=== PATIENT | male | born 1975 | race Caucasian/White ===

== ENCOUNTER 2016-06-06 16:18 | Emergency (ER) | payer SELFPAY ==
[~2016-06-06] VITALS: Ht 172.7 cm; Wt 103.4 kg
[~2016-06-06 16:18] MED LIST: ALLEGRA180 MG PO; AMOXICILLIN500 M2 PO; AMOXICILLIN500 MG PO; ANAPROX DS550 MG PO; AUGMENTIN 875875 MG PO; BACTRIM DS 8001 TA1 PO; CLEOCIN HCL150 MG PO; CLEOCIN150 MG PO; CLINDAMYCIN HC300 MG PO; DICLOFENAC POTA50 MG PO; FLEXERIL5 MG PO; HYDROCODONE BIT1 T11 PO; MOTRIN800 MG PO; NKHM; NORCO 325 MG-51 TAB PO; NORFLEX100 MG PO; PHENERGAN25 M1 PO; PREDNICOT20 MG PO; PREDNISONE10 MG PO; TRAMADOL HCL50 MG PO; TRIMOX500 MG PO; VICODIN 5/500 505 MG PO; VICODIN 500 MG-1 TAB PO; ZITHROMAX Z PA250 MG PO; ZITHROMAX250 MG PO; ZOLOFT50 MG PO; ZYRTEC10 MG PO
[2016-06-06] MEDS ORDERED: ZOLOFT25 MG PO (16:23)
== END 2016-06-06 17:53 | disposition home or self-care (01) ==
LOC: ED 16:18
DX: T78.40XA Allergy, unspecified, initial encounter (principal); X58.XXXA Exposure to other specified factors, initial encounter; Z79.899 Other long term (current) drug therapy

== ENCOUNTER 2016-09-23 12:28 | Emergency (ER) | payer SELFPAY ==
[~2016-09-23] VITALS: Ht 167.6 cm; Wt 99.8 kg
[~2016-09-23 12:28] MED LIST changes: +ZOLOFT25 MG PO
[2016-09-23] MEDS ORDERED: PREDNISONE10 MG PO (12:46)
== END 2016-09-23 14:34 | disposition home or self-care (01) ==
LOC: ED 12:28
DX: L30.9 Dermatitis, unspecified (principal); R03.0 Elevated blood-pressure reading, without diagnosis of hypertension; F32.9 Major depressive disorder, single episode, unspecified; Z79.899 Other long term (current) drug therapy

== ENCOUNTER 2017-03-12 22:14 | Emergency (ER) | payer SELFPAY ==
[~2017-03-12] VITALS: Ht 170.1 cm; Wt 99.8 kg
[2017-03-12] MEDS ORDERED: PREDNISONE50 MG PO (22:47)
== END 2017-03-12 23:30 | disposition home or self-care (01) ==
LOC: ED 22:14
DX: J06.9 Acute upper respiratory infection, unspecified (principal)

== ENCOUNTER 2017-03-26 21:57 | Inpatient (IN) | payer SELFPAY ==
[~2017-03-26] VITALS: Ht 170.1 cm; Wt 100.9 kg
--- NOTE | ~2017-03-26 | ST ---
[place], [place] EXERCISE STRESS TEST REPORT NAME: [facility]AVANA BAUTISTA III [facility]: [id number] UNIT #: [id number] ROOM: 526 DOCTOR: SERGIO LIN MD BIRTHDATE: [birth year] DOS: 03/27/2017 REFERRING PHYSICIAN: Dr. Gutierrez. INDICATION: Central chest pain. The patient underwent a standard Jas protocol exercise nuclear stress test. The patient's baseline EKG showed sinus bradycardia at 51 beats per minute with early repolarization. Blood pressure was 108/72. The patient exercised for 10 minutes 45 seconds, reaching a peak heart rate of 163, which represents 92% of maximum predicted. The patient achieved a peak metabolic level of 12.5. The patient had no ischemic changes. The patient had inspirational chest pain, reproducible with deep inspiration. The patient had no arrhythmias. SUMMARY OF FINDINGS: 1. No ischemic changes. 2. Atypical chest pain. 3. Brown Treadmill score of 12.5 portending a low-risk prognosis. 4. Please see separate dictation for perfusion scan results. SERGIO LIN MD CM:STRESS:EXERCISE STRESS TEST REPORT [id number] SERGIO LIN MD
[~2017-03-26 21:57] MED LIST changes: +PREDNISONE50 MG PO
[2017-03-26 22:11] VITALS: BP 136/86
[2017-03-26 22:15] LABS: BASO % 0.4 % (0.0-1.0); EOS # 0.2 10*3/uL (0.0-0.4); HEMATOCRIT 41.8 % (42.0-52.0); HEMOGLOBIN 14.2 g/dl (14.0-18.0); LYMPH # 2.4 10*3/uL (1.3-4.4); LYMPH % 22.2 % (27.0-41.0); MEAN CELL VOLUME 91.9 fl (80.0-94.0); MEAN CORPUSCULAR HGB 31.2 pg (27.0-31.0); MEAN PLATELET VOLUME 9.1 fl (9.6-12.3); MONO % 9.3 % (3.0-9.0); NEUT # 6.9 10*3/uL (2.3-7.9); NEUT % 65.3 % (47.0-73.0); PLATELET COUNT AUTOMATED 255 10*3/uL (130-400); RED BLOOD COUNT 4.55 10*6/uL (4.50-5.90); RED CELL DISTRI WIDTH 12.2 % (0-14.5); WHITE BLOOD COUNT 10.6 10*3/uL (4.8-10.8)
[2017-03-26 22:24] LABS: ACT PARTIAL THROMBO TIME 27.1 SECONDS (20.8-31.5)
--- NOTE | 2017-03-26 22:24 | NUR ---
XRAY AT BEDSIDE
[2017-03-26 22:32] LABS: ALKALINE PHOSPHATASE 95 U/L (45-117); BUN 17 mg/dl (7-24); CHLORIDE 103 mmol/L (98-107); CREATININE 1.16 mg/dL (0.70-1.30); POTASSIUM 3.8 mmol/L (3.5-5.1); SGOT/AST 22 IU/L (3-35); SGPT/ALT 51 U/L (12-78); SODIUM 139 mmol/L (136-145); TOTAL PROTEIN 7.7 gm/dL (6.4-8.2)
[2017-03-26 22:33] LABS: TROPONIN I < 0.015 ng/ml (<0.045)
[2017-03-26 22:38] VITALS: BP 123/82
--- NOTE | 2017-03-26 22:39 | NUR ---
PATIENT REPORTS DECREASED CHEST PAIN. 2 OR 3 ON SCALE FROM 1-10. SITTIGN UP IN BED AT THIS TIME.
--- NOTE | 2017-03-26 22:55 | NUR ---
PATIENT REPORTS CHEST PAIN IS A 1 AND HE FEELS MUCH BETTER. COUGH NOTED.
[2017-03-26 23:06] VITALS: BP 111/77
[2017-03-26 23:54] VITALS: BP 101/66
--- NOTE | 2017-03-27 00:25 | NUR ---
transported patient to ct. condition stable.
[2017-03-27 00:49] VITALS: BP 113/80
--- NOTE | 2017-03-27 01:24 | NUR ---
PATIENT REPORTS CHEST PAIN IS 2 OUT OF 10.
--- NOTE | 2017-03-27 02:10 | NUR ---
RATES CHEST PAIN A 3 OF 10 AT THIS TIME.
--- NOTE | 2017-03-27 02:16 | NUR ---
CALLED THE FLOOR FOR REPORT, WILL CALL BACK.
[2017-03-27 02:45] VITALS: BP 134/69
--- NOTE | 2017-03-27 02:45 | NUR ---
A 41, admitted to 5E, under the services of ANTONINA Farooq DO with a diagnosis of CHEST PAIN. Chief complaint is CHEST PAIN. Patient arrived via bed from ER. Monitor applied. Initial assessment completed. Vital signs taken and recorded. ANTONINA FAROOQ DO notified of admission to the unit. Orders received. See assessment for past medical history, medications and allergies. Patient and/or family oriented to unit. visitation policy reviewed. Clothing/patient valuable form completed. LATOSHA MICHAEL
--- NOTE | 2017-03-27 02:56 | NUR ---
MED REC UP TO DATE PER PATIENT
[2017-03-27 04:22] LABS: BASO % 0.4 % (0.0-1.0); EOS # 0.2 10*3/uL (0.0-0.4); EOS % 2.1 % (1.0-4.0); HEMATOCRIT 39.6 % (42.0-52.0); HEMOGLOBIN 13.4 g/dl (14.0-18.0); LYMPH # 2.4 10*3/uL (1.3-4.4); LYMPH % 22.1 % (27.0-41.0); MEAN CELL VOLUME 92.5 fl (80.0-94.0); MEAN CORPUSCULAR HGB 31.3 pg (27.0-31.0); MEAN CORPUSCULAR HGB CONC 33.8 g/dl (33.0-37.0); MEAN PLATELET VOLUME 9.2 fl (9.6-12.3); MONO # 0.9 10*3/uL (0.1-1.0); MONO % 8.5 % (3.0-9.0); NEUT # 7.1 10*3/uL (2.3-7.9); NEUT % 66.1 % (47.0-73.0); PLATELET COUNT AUTOMATED 230 10*3/uL (130-400); RED BLOOD COUNT 4.28 10*6/uL (4.50-5.90); RED CELL DISTRI WIDTH 12.4 % (0-14.5); WHITE BLOOD COUNT 10.7 10*3/uL (4.8-10.8)
[2017-03-27 04:34] LABS: BUN 17 mg/dl (7-24); CHLORIDE 105 mmol/L (98-107); CREATININE 1.09 mg/dL (0.70-1.30); SODIUM 141 mmol/L (136-145)
[2017-03-27 04:40] LABS: CHOLESTEROL 221 mg/dL (<200); HDL CHOLESTEROL 42 mg/dl (40-60); LDL CHOLESTEROL 138 mg/dL (9-159); PHOSPHOROUS 3.5 mg/dL (2.5-4.9); TRIGLYCERIDES 205 mg/dl (<150); VLDL CHOLESTEROL 41 mg/dL (6-40)
--- NOTE | 2017-03-27 06:00 | NUR ---
PATIENT OFF FLOOR FOR CT AT THIS TIME.
--- NOTE | 2017-03-27 06:24 | NUR ---
PHYSICIAN WAS NOTIFIED OF DR. LIN CONSULT. RESPONSE OF NOTIFICATION WAS OKAY WE'LL SEE HIM LATER TODAY. ROSHNI RINCON
[2017-03-27 06:35] LABS: VITAMIN D, 25-HYDROXY 30.6 ng/mL (30-100)
[2017-03-27 08:00] VITALS: BP 123/76
[2017-03-27 12:00] VITALS: BP 120/80
--- NOTE | 2017-03-27 12:00 | NUR ---
INFORMED CONSENT OBTAINED FOR EXERCISE CARDIOLITE STRESS TEST WITH DR. LIN. RESTING EKG SINUS GISSEL WITH A SUPINE HR OF 51 WITH A BP OF 108/72 AND HR OF 63 WITH BP OF 110/76 IN STANDING POSITION. HAS EARLY REPOLARIZATION. PT COMPLETED 10:45 OF A KENNY PROTOCOL WITH COMPLETION OF STAGE IV AT 4.2 MPH AND 16% GRADE. REACHED A PEAK HR OF 163 WHICH IS 92% OF PREDICTED MAX WITH A PEAK BP OF 212/[address]. [address] ELEVATION IN LEADS V2-V3. DID HAVE CHEST DISCOMFORT WITH DEEP INSPIRATION. HAS A HIGH EXERCISE TOLERANCE. LAST RECOVERY HR OF 97 WITH BP OF 172/98. HAD HYPERTENSIVE RESPONSE TO EXERCISE. AWAITING SCANNING IN STABLE CONDITION.
[2017-03-27] MEDS ORDERED: ZANTAC 150150 MG PO (14:42)
[2017-03-27 16:00] VITALS: BP 118/67
--- NOTE | 2017-03-27 16:46 | NUR ---
PT. INSTRUCTED ON I/S AND THE PURPOSE. PT. INSTRUCTED TO TAKE HOME UPON DISCHARGE. 1500 TO 2000 VOLUME ACHIEVED.
--- NOTE | 2017-03-27 17:48 | NUR ---
Discharge instructions reviewed with patient/family. Patient receptive and verbalizes understanding. Follow-up care arranged. Written instructions given to patient/family. AFR[place] FONG
== END 2017-03-27 17:48 | disposition home or self-care (01) | DRG 313 ==
LOC: ED 21:57 → EDHOLD 03-27 01:56 → 5E 03-27 02:07
PROVIDERS: Emergency Medicine Emergency Medical Services; Internal Medicine; ADMIT Internal Medicine
PROC: 4A02XM4 Measurement of Cardiac Total Activity, External Approach (ICD-10-PCS; principal; 2017-03-27)
DX: R07.89 Other chest pain (principal); J18.1 Lobar pneumonia, unspecified organism; F33.9 Major depressive disorder, recurrent, unspecified; E83.41 Hypermagnesemia; K52.9 Noninfective gastroenteritis and colitis, unspecified; J02.9 Acute pharyngitis, unspecified; R79.89 Other specified abnormal findings of blood chemistry; E66.9 Obesity, unspecified; Z68.30 Body mass index [BMI] 30.0-30.9, adult; Z81.8 Family history of other mental and behavioral disorders; Z87.442 Personal history of urinary calculi; Z82.49 Family history of ischemic heart disease and other diseases of the circulatory system; Z87.891 Personal history of nicotine dependence

== ENCOUNTER 2017-08-06 21:30 | Emergency (ER) | payer SELFPAY ==
[~2017-08-06] VITALS: Ht 167.6 cm; Wt 108.9 kg
[~2017-08-06 21:30] MED LIST changes: +ZANTAC 150150 MG PO
[2017-08-06 21:51] LABS: BASO % 0.5 % (0.0-1.0); EOS # 0.3 10*3/uL (0.0-0.4); EOS % 3.1 % (1.0-4.0); LYMPH # 2.5 10*3/uL (1.3-4.4); LYMPH % 31.9 % (27.0-41.0); MEAN CORPUSCULAR HGB 31.7 pg (27.0-31.0); MEAN CORPUSCULAR HGB CONC 34.1 g/dl (33.0-37.0); MEAN PLATELET VOLUME 9.3 fl (9.6-12.3); MONO # 0.9 10*3/uL (0.1-1.0); MONO % 11.5 % (3.0-9.0); NEUT # 4.2 10*3/uL (2.3-7.9); NEUT % 52.4 % (47.0-73.0); PLATELET COUNT AUTOMATED 232 10*3/uL (130-400); RED BLOOD COUNT 4.41 10*6/uL (4.50-5.90); RED CELL DISTRI WIDTH 11.8 % (0-14.5); WHITE BLOOD COUNT 7.9 10*3/uL (4.8-10.8)
[2017-08-06 22:10] LABS: BILIRUBIN NEGATIVE (NEGATIVE); BLOOD NEGATIVE (NEGATIVE); CLARITY CLEAR (CLEAR); COLOR YELLOW (YELLOW); GLUCOSE NEGATIVE (NEGATIVE); KETONE NEGATIVE (NEGATIVE); LEUKO ESTERASE NEGATIVE (NEGATIVE); NITRITE NEGATIVE (NEGATIVE); PH 5.5 (5.0-9.0); SPECIFIC GRAVITY 1.025 (1.005-1.030); UROBILINOGEN 0.2 E.U./dl (0.2-1.0)
[2017-08-06 22:10] LABS: ALBUMIN 3.7 gm/dl (3.1-4.5); ALKALINE PHOSPHATASE 85 U/L (45-117); BUN 18 mg/dl (7-24); CHLORIDE 103 mmol/L (98-107); CREATININE 1.17 mg/dL (0.70-1.30); LIPASE 114 U/L (73-393); POTASSIUM 4.2 mmol/L (3.5-5.1); SGOT/AST 33 IU/L (3-35); SGPT/ALT 70 U/L (12-78); SODIUM 139 mmol/L (136-145); TOTAL PROTEIN 7.2 gm/dL (6.4-8.2)
[2017-08-06 22:14] LABS: BETA-HCG, QUANT < 1.0 mIU/mL (<1)
[2017-08-06 22:16] LABS: BACTERIA TRACE
[2017-08-06 22:17] LABS: MUCOUS TRACE; RBC 0-2 rbc/hpf (0-2); WBC 0-2 wbc/hpf (0-5)
[2017-08-06] MEDS ORDERED: Percocet 325 MG1 TAB PO (23:14)
[2017-08-06] MEDS ORDERED: ZOFRAN ODT4 MG SL (23:14)
== END 2017-08-06 23:33 | disposition home or self-care (01) ==
LOC: ED 21:30
PROVIDERS: Emergency Medicine Emergency Medical Services
DX: N23 Unspecified renal colic (principal); E78.5 Hyperlipidemia, unspecified; E66.9 Obesity, unspecified; Z87.442 Personal history of urinary calculi; Z87.891 Personal history of nicotine dependence; Z68.34 Body mass index [BMI] 34.0-34.9, adult; Z98.890 Other specified postprocedural states; Z79.899 Other long term (current) drug therapy

== ENCOUNTER 2018-05-18 | Emergency (ER) | payer SELFPAY ==
[~2018-05-18] MED LIST changes: +CLARITIN10 MG PO; +FLONASE ALLERG9.9 ML NAS; +OMNICEF300 MG PO; +Percocet 325 MG1 TAB PO; +ZOFRAN ODT4 MG SL
== END 2018-05-18 03:39 | disposition home or self-care (01) ==
DX: T15.91XA Foreign body on external eye, part unspecified, right eye, initial encounter (principal); E78.5 Hyperlipidemia, unspecified; E66.9 Obesity, unspecified; Z79.899 Other long term (current) drug therapy; Z68.34 Body mass index [BMI] 34.0-34.9, adult; Z87.891 Personal history of nicotine dependence; Y92.89 Other specified places as the place of occurrence of the external cause

== ENCOUNTER 2018-05-20 18:42 | Emergency (ER) | payer SELFPAY ==
[~2018-05-20] VITALS: Ht 167.6 cm; Wt 108.9 kg
[2018-05-20] MEDS ORDERED: Tobrex Ophth S2.5 ML OPH (19:29)
[2018-05-20] MEDS ORDERED: ACULAR 0.5%3 ML OPH (19:29)
== END 2018-05-20 19:41 | disposition home or self-care (01) ==
LOC: ED 18:42
DX: S05.01XA Injury of conjunctiva and corneal abrasion without foreign body, right eye, initial encounter (principal); Z79.2 Long term (current) use of antibiotics; Z79.899 Other long term (current) drug therapy; Z87.891 Personal history of nicotine dependence; X58.XXXA Exposure to other specified factors, initial encounter; Y93.89 Activity, other specified; Y92.89 Other specified places as the place of occurrence of the external cause; Y99.8 Other external cause status

== ENCOUNTER 2018-05-31 18:12 | Emergency (ER) | payer SELFPAY ==
[~2018-05-31 18:12] MED LIST changes: +ACULAR 0.5%3 ML OPH; +Tobrex Ophth S2.5 ML OPH
[2018-05-31] MEDS ORDERED: NAPROSYN500 MG PO (18:18)
[2018-05-31] MEDS ORDERED: ZOFRAN4 MG PO (18:18)
[2018-05-31] MEDS ORDERED: AUGMENTIN 875875 MG PO (18:18)
== END 2018-05-31 18:47 | disposition home or self-care (01) ==
LOC: ED 18:12
DX: S01.511A Laceration without foreign body of lip, initial encounter (principal); R03.0 Elevated blood-pressure reading, without diagnosis of hypertension; E78.5 Hyperlipidemia, unspecified; E66.9 Obesity, unspecified; Z68.30 Body mass index [BMI] 30.0-30.9, adult; Z79.899 Other long term (current) drug therapy; Z79.2 Long term (current) use of antibiotics; W22.8XXA Striking against or struck by other objects, initial encounter; Y93.89 Activity, other specified; Y92.89 Other specified places as the place of occurrence of the external cause; Y99.8 Other external cause status

== ENCOUNTER 2019-01-08 15:51 | Emergency (ER) | payer OTHER ==
[~2019-01-08] VITALS: Ht 167.6 cm; Wt 108.9 kg
[~2019-01-08 15:51] MED LIST changes: +NAPROSYN500 MG PO; +ZOFRAN4 MG PO
[2019-01-08] MEDS ORDERED: ANAPROX DS550 MG PO (17:07)
== END 2019-01-08 17:55 | disposition home or self-care (01) ==
LOC: ED 15:51
DX: M25.562 Pain in left knee (principal); R60.0 Localized edema; Z87.891 Personal history of nicotine dependence; Z79.899 Other long term (current) drug therapy; W22.8XXA Striking against or struck by other objects, initial encounter; Y93.89 Activity, other specified; Y92.89 Other specified places as the place of occurrence of the external cause; Y99.8 Other external cause status

== ENCOUNTER 2019-05-26 07:45 | Emergency (ER) | payer SELFPAY ==
[~2019-05-26] VITALS: Ht 167.6 cm; Wt 108.9 kg
[2019-05-26] MEDS ORDERED: MUCINEX DM 30/61 TAB PO (09:02)
[2019-05-26] MEDS ORDERED: TESSALON PERLE100 MG PO (09:02)
[2019-05-26] MEDS ORDERED: TAMIFLU 75MG CA75 MG PO (09:02)
== END 2019-05-26 09:15 | disposition home or self-care (01) ==
LOC: ED 07:45
DX: R05 Cough (principal); R06.02 Shortness of breath; R50.9 Fever, unspecified; R00.0 Tachycardia, unspecified; E78.5 Hyperlipidemia, unspecified; E66.9 Obesity, unspecified; J45.909 Unspecified asthma, uncomplicated; Z68.34 Body mass index [BMI] 34.0-34.9, adult; Z79.899 Other long term (current) drug therapy; Z87.891 Personal history of nicotine dependence

== ENCOUNTER 2019-08-28 13:13 | Emergency (ER) | payer SELFPAY ==
[~2019-08-28 13:13] MED LIST changes: +MUCINEX DM 30/61 TAB PO; +TAMIFLU 75MG CA75 MG PO; +TESSALON PERLE100 MG PO
[2019-08-28] MEDS ORDERED: AUGMENTIN 875-875 MG PO (14:12)
[2019-08-28] MEDS ORDERED: ANTIBIOTIC28.4 GM T (14:12)
== END 2019-08-28 14:24 | disposition home or self-care (01) ==
LOC: ED 13:13
DX: S60.551A Superficial foreign body of right hand, initial encounter (principal); J45.909 Unspecified asthma, uncomplicated; Z79.899 Other long term (current) drug therapy; Z79.2 Long term (current) use of antibiotics; Z87.891 Personal history of nicotine dependence; Z87.442 Personal history of urinary calculi; W22.8XXA Striking against or struck by other objects, initial encounter; Y93.89 Activity, other specified; Y92.89 Other specified places as the place of occurrence of the external cause; Y99.8 Other external cause status

== ENCOUNTER 2023-02-19 21:49 | Emergency (ER) | payer OTHER ==
[~2023-02-19] VITALS: Ht 167.6 cm; Wt 112.5 kg
[~2023-02-19 21:49] MED LIST changes: +ANTIBIOTIC28.4 GM T; +AUGMENTIN 875-875 MG PO
== END 2023-02-19 23:31 | disposition home or self-care (01) ==
LOC: ED 21:49
DX: R20.8 Other disturbances of skin sensation (principal); J45.909 Unspecified asthma, uncomplicated; Z87.442 Personal history of urinary calculi; Z98.890 Other specified postprocedural states; Z87.891 Personal history of nicotine dependence

== ENCOUNTER → 2023-12-11 | Outpatient (CLI) | payer OTHER ==
[2023-12-15 02:06] LABS: TRYPTASE 4.4 ug/L (2.2-13.2)
== END | disposition home or self-care (01) ==
LOC: LAB 15:56
PROVIDERS: ATTEND Allergy & Immunology
DX: J30.89 Other allergic rhinitis (principal); J45.40 Moderate persistent asthma, uncomplicated

== ENCOUNTER 2024-11-18 17:42 | Emergency (ER) | payer OTHER ==
[~2024-11-18] VITALS: Ht 167.6 cm; Wt 111.1 kg
[2024-11-18] MEDS ORDERED: AMOXICILLIN875 MG PO (18:25)
[2024-11-18] MEDS ORDERED: AMOXICILLIN 875 MG TAB PO ONE (18:25)
== END 2024-11-18 18:46 | disposition home or self-care (01) ==
LOC: ED 17:42
DX: H66.92 Otitis media, unspecified, left ear (principal); J45.909 Unspecified asthma, uncomplicated; Z79.899 Other long term (current) drug therapy; Z98.890 Other specified postprocedural states

== ENCOUNTER → 2025-02-24 | Outpatient (CLI) | payer OTHER ==
[~2025-02-24] MED LIST changes: +AMOXICILLIN875 MG PO
== END | disposition home or self-care (01) ==
LOC: LAB 09:30
PROVIDERS: ATTEND Registered Nurse
DX: I10 Essential (primary) hypertension (principal); M47.22 Other spondylosis with radiculopathy, cervical region; R29.818 Other symptoms and signs involving the nervous system; R63.5 Abnormal weight gain; R53.83 Other fatigue; G43.909 Migraine, unspecified, not intractable, without status migrainosus

== ENCOUNTER 2025-03-23 13:04 | Emergency (ER) | payer OTHER ==
[~2025-03-23] VITALS: Ht 167.6 cm; Wt 113.4 kg
[2025-03-23] MEDS ORDERED: METHOCARBAMOL 750 MG TAB PO ONE (13:40)
[2025-03-23] MEDS ORDERED: METHOCARBAMOL500 M1 PO (14:57)
== END 2025-03-23 15:00 | disposition home or self-care (01) ==
LOC: ED 13:04
DX: S46.912A Strain of unspecified muscle, fascia and tendon at shoulder and upper arm level, left arm, initial encounter (principal); J45.909 Unspecified asthma, uncomplicated; F10.90 Alcohol use, unspecified, uncomplicated; Z87.891 Personal history of nicotine dependence; Z87.442 Personal history of urinary calculi; V89.2XXA Person injured in unspecified motor-vehicle accident, traffic, initial encounter; Y93.89 Activity, other specified; Y92.410 Unspecified street and highway as the place of occurrence of the external cause; Y99.8 Other external cause status; Y90.9 Presence of alcohol in blood, level not specified

== ENCOUNTER → 2025-04-23 | Outpatient (CLI) | payer OTHER ==
[~2025-04-23] MED LIST changes: +METHOCARBAMOL500 M1 PO
== END | disposition home or self-care (01) ==
LOC: MRI 08:56
PROVIDERS: ATTEND Registered Nurse
DX: M19.012 Primary osteoarthritis, left shoulder (principal); M25.812 Other specified joint disorders, left shoulder; M54.2 Cervicalgia